=== PATIENT | female | born 1955 | race Caucasian/White ===

== ENCOUNTER → 2017-09-20 | Outpatient (CLI) | payer OTHER ==
[~2017-09-20] MED LIST: ASPIR 8181 MG PO; AZOR 10-20 MG1 EACH; BACLOFEN 10MG T10 MG PO; CALCIUM 1,2001 EACH; DOXYCYCLINE 10100 MG PO; HUMALOG100 UNIT/1 SUBQ; IBUPROFEN 200200 M1 PO; LANTUS100 UNIT/M; LEVOTHYROXINE0.05 MG PO; METAXALONE800 MG; MILK THISTLE200 M1; MULTI VITAMIN1 EACH; NIACIN 100MG T100 M1; PERCOCET 10-321 EACH; TRILEPTAL 300300 MG PO; VENTOLIN HFA 1818 GM; VITAMINC500
== END ==
LOC: RAD 09:31
DX: M79.672 Pain in left foot (principal); Z87.828 Personal history of other (healed) physical injury and trauma